=== PATIENT | male | born 1990 | race Caucasian/White ===

== ENCOUNTER 2017-10-27 00:19 | Inpatient (IN) | payer MEDICAID ==
[2017-10-26 21:50] VITALS: BP 120/49
[~2017-10-27] VITALS: Ht 185.4 cm; Wt 144.7 kg
[~2017-10-27 00:19] MED LIST: ATEN50TA PO; DIVA500T35 PO; FISH1 PO; HALOPERIDOL 5 MG TABLET PO PRN; QUET100T PO; QUET200T PO; VITAD1000 PO
[2017-10-27] MEDS ORDERED: A20IH1 IH (00:28)
[2017-10-27 00:50] LABS: BASOPHILS % (AUTO) 1.3 % (0.0-2.0); EOSINOPHILS % (AUTO) 5.2 % (1.0-6.0); HEMATOCRIT 45.4 % (41-53); HEMOGLOBIN 15.6 g/dL (13.5-17.5); LYMPHOCYTES # (AUTO) 3.5 K/uL (1.0-4.8); LYMPHOCYTES % (AUTO) 32.3 % (22.0-44.0); MEAN CORPUSCULAR HEMOGLOBIN 30.2 pg (26.0-34.0); MEAN CORPUSCULAR HGB CONC 34.5 G/dL (31.0-37.0); MEAN CORPUSCULAR VOLUME 88 fL (80-100); MONOCYTES # (AUTO) 1.1 K/uL (0.1-1.0); MONOCYTES % (AUTO) 10.2 % (2.0-9.0); NEUTROPHILS # (AUTO) 5.6 K/uL (1.8-7.7); PLATELET COUNT (AUTO) 277 K/uL (150-450); RED BLOOD CELL COUNT(AUTO) 5.18 MIL/uL (4.50-5.90); RED CELL DISTRIBUTION WIDTH 14.2 % (11.5-14.5)
[2017-10-27 00:58] LABS: ANION GAP 8 mmol/L (8-16); CALCIUM, TOTAL 9.2 mg/dL (8.8-10.5); CARBON DIOXIDE 31 mmol/L (22-29); CHLORIDE 104 mmol/L (98-107); CREATININE 0.88 mg/dL (0.60-1.30); GLOMERULAR FILTR. RATE CALC > 60 mL/min (>60); GLUCOSE,RANDOM 98 mg/dL (70-110); POTASSIUM 4.3 mmol/L (3.5-5.1); SODIUM SERUM 143 mmol/L (136-145); UREA NITROGEN, BLOOD 15 mg/dL (7-18)
[2017-10-27 01:04] LABS: ALANINE AMINOTRANSFERASE 35 U/L (12-78); ALBUMIN 3.8 g/dL (3.4-5.0); ALKALINE PHOSPHATASE 85 U/L (46-116); ASPARTATE AMINOTRANSFERASE 24 U/L (15-37); BILIRUBIN,TOTAL 0.4 mg/dL (0.1-1.0); TOTAL PROTEIN, SERUM 7.8 g/dL (6.4-8.2); VALPROIC ACID 5 mcg/mL (50-100)
[2017-10-27 01:25] LABS: AMPHET/METH SCREEN,URINE POSITIVE (NEGATIVE); BARBITURATE SCREEN, URINE NEGATIVE (NEGATIVE); BENZODIAZEPINES SCREEN,URINE NEGATIVE (NEGATIVE); CANNABINOID SCREEN,URINE NEGATIVE (NEGATIVE); COCAINE SCREEN,URINE NEGATIVE (NEGATIVE); METHADONE SCREEN, URINE NEGATIVE (NEGATIVE); OPIATE SCREEN,URINE NEGATIVE (NEGATIVE)
[2017-10-27 01:26] LABS: PHENCYCLIDINE SCREEN,URINE NEGATIVE (NEGATIVE)
[2017-10-27] MEDS ORDERED: 0.9% SODIUM CHLORIDE 5 ML NEB SOLUTION NEB ONE (03:38)
[2017-10-27] MEDS ORDERED: ALBUTEROL SULFATE 2.5 MG/0.5 ML NEB SOLUTION NEB ONE (03:45)
[2017-10-27] MEDS ORDERED: IPRATROPIUM BROMIDE 0.5 MG/2.5 ML NEB SOLUTION NEB ONE (03:45)
[2017-10-27] MEDS: ZOLPIDEM TARTRATE 10 MG TABLET PO PRN ×2 (04:52→20:10)
[2017-10-27] MEDS: LORazepam 2 MG TABLET PO PRN (04:52)
[2017-10-27 05:37] LABS: EOSINOPHILS % (AUTO) 4.8 % (1.0-6.0); HEMOGLOBIN 13.8 g/dL (13.5-17.5); LYMPHOCYTES % (AUTO) 33.5 % (22.0-44.0); MEAN CORPUSCULAR HEMOGLOBIN 29.8 pg (26.0-34.0); MEAN CORPUSCULAR HGB CONC 33.7 G/dL (31.0-37.0); MEAN CORPUSCULAR VOLUME 89 fL (80-100); MONOCYTES # (AUTO) 0.8 K/uL (0.1-1.0); MONOCYTES % (AUTO) 9.1 % (2.0-9.0); NEUTROPHILS # (AUTO) 4.7 K/uL (1.8-7.7); NEUTROPHILS % (AUTO) 51.6 % (40.0-70.0); PLATELET COUNT (AUTO) 238 K/uL (150-450); RED BLOOD CELL COUNT(AUTO) 4.63 MIL/uL (4.50-5.90); RED CELL DISTRIBUTION WIDTH 13.5 % (11.5-14.5)
[2017-10-27 06:01] LABS: ALANINE AMINOTRANSFERASE 30 U/L (12-78); ALBUMIN 3.4 g/dL (3.4-5.0); ALKALINE PHOSPHATASE 69 U/L (46-116); ANION GAP 8 mmol/L (8-16); ASPARTATE AMINOTRANSFERASE 20 U/L (15-37); BILIRUBIN,TOTAL 0.5 mg/dL (0.1-1.0); CALCIUM, TOTAL 8.5 mg/dL (8.8-10.5); CARBON DIOXIDE 26 mmol/L (22-29); CHLORIDE 105 mmol/L (98-107); FREE T4 (FREE THYROXINE) 0.95 ng/dL (0.76-1.46); GLOMERULAR FILTR. RATE CALC > 60 mL/min (>60); GLUCOSE,RANDOM 120 mg/dL (70-110); POTASSIUM 4.2 mmol/L (3.5-5.1); SODIUM SERUM 139 mmol/L (136-145); THYROID STIMULATING HORMONE 2.97 uIU/mL (0.36-3.74); TOTAL PROTEIN, SERUM 6.8 g/dL (6.4-8.2); UREA NITROGEN, BLOOD 14 mg/dL (7-18)
[2017-10-27 06:10] LABS: VALPROIC ACID < 3 mcg/mL (50-100)
[2017-10-27 09:07] VITALS: BP 122/59
[2017-10-27 13:00] VITALS: BP 116/71
[2017-10-27 16:15] VITALS: BP 128/70
[2017-10-27] MEDS: QUEtiapine FUMARATE 200 MG TABLET PO SCH (20:10)
[2017-10-28 00:41] VITALS: BP 115/62
[2017-10-28] MEDS: ALBUTEROL SULFATE HFA 90 MCG/PUFF 8 GM INHALER IH PRN ×2 (07:20→12:47)
[2017-10-28] MEDS: QUEtiapine FUMARATE 100 MG TABLET PO SCH (08:15)
[2017-10-28] MEDS: DIVALPROEX SODIUM 500 MG DR TABLET PO SCH ×2 (08:15→16:40)
[2017-10-28] MEDS: CHOLECALCIFEROL (VIT D3) 1,000 UNITS TABLET PO SCH (08:15)
[2017-10-28] MEDS: NICOTINE 14 MG/24 HOUR PATCH TD SCH (08:15)
[2017-10-28] MEDS: OMEGA-3/DHA/EPA/FISH OIL 1,000 MG CAPSULE PO SCH (08:16)
[2017-10-28] MEDS: ATENOLOL 50 MG TABLET PO SCH (08:16)
[2017-10-28 08:19] VITALS: BP 121/68
[2017-10-28] MEDS ORDERED: MAG HYDROX/AL HYDROX/SIMETH ES 30 ML SUSPENSION UDCUP PO PRN (08:30)
[2017-10-28] MEDS ORDERED: BENZOCAINE/MENTHOL LOZENGE MM PRN (08:30)
[2017-10-28] MEDS ORDERED: ALBUTEROL SULFATE HFA 90 MCG/PUFF 8 GM INHALER IH PRN (08:30)
[2017-10-28] MEDS ORDERED: MAGNESIUM HYDROXIDE SUSPENSION 30 ML UDCUP PO PRN (08:30)
[2017-10-28] MEDS ORDERED: BACITRACIN 28.4 GM OINTMENT TP PRN (08:30)
[2017-10-28] MEDS ORDERED: PETROLATUM,WHITE 71 GM JELLY TP PRN (08:30)
[2017-10-28] MEDS ORDERED: ACETAMINOPHEN 325 MG TABLET PO PRN (08:30)
[2017-10-28] MEDS ORDERED: LOPERAMIDE HCL 2 MG CAPSULE PO PRN (08:30)
[2017-10-28] MEDS ORDERED: ONDANSETRON HCL 4 MG TABLET PO PRN (08:30)
[2017-10-28] MEDS ORDERED: CloNIDine HCL 0.1 MG TABLET PO PRN (08:30)
[2017-10-28] MEDS: IBUPROFEN 600 MG TABLET PO PRN ×2 (09:06→17:46)
[2017-10-28] MEDS: OMEPRAZOLE 20 MG CAPSULE PO SCH (09:06)
[2017-10-28] MEDS: DOCUSATE SODIUM 100 MG CAPSULE PO SCH (09:07)
[2017-10-28] MEDS: LORazepam 2 MG TABLET PO PRN ×2 (13:08→19:56)
[2017-10-28 16:26] VITALS: BP 111/73
[2017-10-28] MEDS: QUEtiapine FUMARATE 200 MG TABLET PO SCH (19:56)
[2017-10-29 01:16] VITALS: BP 122/61
[2017-10-29 08:19] VITALS: BP 114/62
[2017-10-29] MEDS: OMEPRAZOLE 20 MG CAPSULE PO SCH (08:30)
[2017-10-29] MEDS: NICOTINE 14 MG/24 HOUR PATCH TD SCH (08:30)
[2017-10-29] MEDS: QUEtiapine FUMARATE 100 MG TABLET PO SCH (08:30)
[2017-10-29] MEDS: DOCUSATE SODIUM 100 MG CAPSULE PO SCH (08:30)
[2017-10-29] MEDS: DIVALPROEX SODIUM 500 MG DR TABLET PO SCH ×2 (08:30→16:00)
[2017-10-29] MEDS: OMEGA-3/DHA/EPA/FISH OIL 1,000 MG CAPSULE PO SCH (08:30)
[2017-10-29] MEDS: CHOLECALCIFEROL (VIT D3) 1,000 UNITS TABLET PO SCH (08:30)
[2017-10-29] MEDS: ATENOLOL 50 MG TABLET PO SCH (09:00)
[2017-10-29 16:11] VITALS: BP 122/65
[2017-10-29 18:37] VITALS: BP 120/71
[2017-10-29] MEDS: IBUPROFEN 600 MG TABLET PO PRN (18:37)
[2017-10-29] MEDS: QUEtiapine FUMARATE 200 MG TABLET PO SCH (20:34)
[2017-10-30 06:23] VITALS: BP 117/58
[2017-10-30] MEDS: CHOLECALCIFEROL (VIT D3) 1,000 UNITS TABLET PO SCH (08:08)
[2017-10-30] MEDS: ATENOLOL 50 MG TABLET PO SCH (08:08)
[2017-10-30] MEDS: DOCUSATE SODIUM 100 MG CAPSULE PO SCH (08:08)
[2017-10-30] MEDS: QUEtiapine FUMARATE 100 MG TABLET PO SCH (08:08)
[2017-10-30] MEDS: OMEPRAZOLE 20 MG CAPSULE PO SCH (08:09)
[2017-10-30] MEDS: NICOTINE 14 MG/24 HOUR PATCH TD SCH (08:10)
[2017-10-30] MEDS: OMEGA-3/DHA/EPA/FISH OIL 1,000 MG CAPSULE PO SCH (08:10)
[2017-10-30] MEDS: DIVALPROEX SODIUM 500 MG DR TABLET PO SCH ×2 (08:11→15:31)
[2017-10-30 08:17] VITALS: BP 108/71
[2017-10-30 15:36] VITALS: BP 111/72
[2017-10-30] MEDS: IBUPROFEN 600 MG TABLET PO PRN (15:37)
[2017-10-30 16:37] VITALS: BP 128/64
[2017-10-30 16:43] VITALS: BP 111/72
[2017-10-30] MEDS: QUEtiapine FUMARATE 200 MG TABLET PO SCH (19:38)
[2017-10-30] MEDS: ZOLPIDEM TARTRATE 10 MG TABLET PO PRN (21:00)
[2017-10-31 00:01] VITALS: BP 121/84
[2017-10-31 08:05] VITALS: BP 122/78
[2017-10-31] MEDS: NICOTINE 14 MG/24 HOUR PATCH TD SCH (09:00)
[2017-10-31] MEDS: DOCUSATE SODIUM 100 MG CAPSULE PO SCH (09:01)
[2017-10-31] MEDS: OMEGA-3/DHA/EPA/FISH OIL 1,000 MG CAPSULE PO SCH (09:01)
[2017-10-31] MEDS: CHOLECALCIFEROL (VIT D3) 1,000 UNITS TABLET PO SCH (09:01)
[2017-10-31] MEDS: OMEPRAZOLE 20 MG CAPSULE PO SCH (09:02)
[2017-10-31] MEDS: DIVALPROEX SODIUM 500 MG DR TABLET PO SCH (09:02)
[2017-10-31] MEDS: QUEtiapine FUMARATE 100 MG TABLET PO SCH (09:02)
[2017-10-31] MEDS: ATENOLOL 50 MG TABLET PO SCH (09:02)
[2017-10-31] MEDS ORDERED: DSS100 PO (09:06)
[2017-10-31] MEDS ORDERED: ALBU8HFA4 IH (09:06)
[2017-10-31] MEDS ORDERED: OMEP20 PO (09:06)
[2017-10-31] MEDS: IBUPROFEN 600 MG TABLET PO PRN (10:50)
== END 2017-10-31 16:05 | disposition home or self-care (01) | DRG 750 ==
LOC: EMS 00:19 → AHU 08:00 → B2S 15:18
PROVIDERS: ADMIT Psychiatry & Neurology Psychiatry; ATTEND Psychiatry & Neurology Psychiatry
DX: F25.9 Schizoaffective disorder, unspecified (principal); Z68.41 Body mass index [BMI] 40.0-44.9, adult; R45.851 Suicidal ideations; I10 Essential (primary) hypertension; E55.9 Vitamin D deficiency, unspecified; G47.00 Insomnia, unspecified; E66.9 Obesity, unspecified; J45.909 Unspecified asthma, uncomplicated; F41.9 Anxiety disorder, unspecified; E78.5 Hyperlipidemia, unspecified; F15.10 Other stimulant abuse, uncomplicated; F17.200 Nicotine dependence, unspecified, uncomplicated; Z79.899 Other long term (current) drug therapy; Z82.49 Family history of ischemic heart disease and other diseases of the circulatory system; Z71.6 Tobacco abuse counseling; Z71.51 Drug abuse counseling and surveillance of drug abuser
CPT/HCPCS: 82306; 84439; 84443; 87081; 94640; 99285; G0480; J3535

== ENCOUNTER 2017-11-01 11:05 | Emergency (ER) | payer MEDICAID ==
[~2017-11-01] VITALS: Ht 182.9 cm; Wt 145.4 kg
[~2017-11-01 11:05] MED LIST changes: +A20IH1 IH; +ALBU8HFA4 IH; +DSS100 PO; -HALOPERIDOL 5 MG TABLET PO PRN; +OMEP20 PO
[2017-11-01] MEDS ORDERED: IBUPROFEN 600 MG TABLET PO ONE (12:15)
[2017-11-01] MEDS ORDERED: MICONAZOLE NITRATE 2% 85 GM POWDER TP ONE (12:15)
[2017-11-01 13:25] VITALS: BP 130/80
== END 2017-11-01 13:26 | disposition home or self-care (01) ==
LOC: EMS 11:06
DX: S93.401A Sprain of unspecified ligament of right ankle, initial encounter (principal); I10 Essential (primary) hypertension; X58.XXXA Exposure to other specified factors, initial encounter; Y93.39 Activity, other involving climbing, rappelling and jumping off; Y92.89 Other specified places as the place of occurrence of the external cause; Y99.8 Other external cause status
CPT/HCPCS: 99284

== ENCOUNTER 2017-12-06 15:14 | Inpatient (IN) | payer MEDICAID ==
[~2017-12-06] VITALS: Ht 185.4 cm; Wt 145.6 kg
[~2017-12-06 15:14] MED LIST changes: -A20IH1 IH; -DSS100 PO; -FISH1 PO; -OMEP20 PO; -VITAD1000 PO
[2017-12-06 17:42] LABS: BASOPHILS % (AUTO) 0.7 % (0.0-2.0); EOSINOPHILS % (AUTO) 1.5 % (1.0-6.0); HEMATOCRIT 44.4 % (41-53); HEMOGLOBIN 15.1 g/dL (13.5-17.5); LYMPHOCYTES # (AUTO) 1.9 K/uL (1.0-4.8); LYMPHOCYTES % (AUTO) 17.4 % (22.0-44.0); MEAN CORPUSCULAR HEMOGLOBIN 29.7 pg (26.0-34.0); MEAN CORPUSCULAR HGB CONC 34.1 G/dL (31.0-37.0); MEAN CORPUSCULAR VOLUME 87 fL (80-100); MONOCYTES # (AUTO) 0.7 K/uL (0.1-1.0); NEUTROPHILS # (AUTO) 8.1 K/uL (1.8-7.7); NEUTROPHILS % (AUTO) 74.4 % (40.0-70.0); PLATELET COUNT (AUTO) 316 K/uL (150-450); RED CELL DISTRIBUTION WIDTH 13.9 % (11.5-14.5)
[2017-12-06 18:04] LABS: ANION GAP 7 mmol/L (8-16); CALCIUM, TOTAL 9.1 mg/dL (8.8-10.5); CARBON DIOXIDE 27 mmol/L (22-29); CHLORIDE 103 mmol/L (98-107); CREATININE 0.81 mg/dL (0.60-1.30); GLOMERULAR FILTR. RATE CALC > 60 mL/min (>60); GLUCOSE,RANDOM 93 mg/dL (70-110); POTASSIUM 4.3 mmol/L (3.5-5.1); SODIUM SERUM 137 mmol/L (136-145); UREA NITROGEN, BLOOD 12 mg/dL (7-18)
[2017-12-06 18:11] LABS: ALANINE AMINOTRANSFERASE 37 U/L (12-78); ALKALINE PHOSPHATASE 64 U/L (46-116); ASPARTATE AMINOTRANSFERASE 16 U/L (15-37); BILIRUBIN,TOTAL 0.9 mg/dL (0.1-1.0); TOTAL PROTEIN, SERUM 7.9 g/dL (6.4-8.2); VALPROIC ACID 4 mcg/mL (50-100)
[2017-12-06 18:42] LABS: AMPHET/METH SCREEN,URINE NEGATIVE (NEGATIVE); BARBITURATE SCREEN, URINE NEGATIVE (NEGATIVE); BENZODIAZEPINES SCREEN,URINE NEGATIVE (NEGATIVE); CANNABINOID SCREEN,URINE NEGATIVE (NEGATIVE); COCAINE SCREEN,URINE NEGATIVE (NEGATIVE); METHADONE SCREEN, URINE NEGATIVE (NEGATIVE); OPIATE SCREEN,URINE NEGATIVE (NEGATIVE); PHENCYCLIDINE SCREEN,URINE NEGATIVE (NEGATIVE)
[2017-12-06] MEDS ORDERED: LEVALBUTEROL HCL 1.25 MG/0.5 ML NEB SOLUTION NEB ONE (18:45)
[2017-12-06] MEDS ORDERED: 0.9% SODIUM CHLORIDE 5 ML NEB SOLUTION NEB ONE (18:45)
[2017-12-06] MEDS ORDERED: IBUPROFEN 800 MG TABLET PO ONE (20:45)
[2017-12-06] MEDS ORDERED: OLANZapine 5 MG TABLET PO ONE (21:15)
[2017-12-06] MEDS ORDERED: DiphenhydrAMINE HCL 25 MG CAPSULE PO ONE (21:15)
[2017-12-06] MEDS ORDERED: LORazepam 2 MG TABLET PO ONE (21:15)
[2017-12-06] MEDS ORDERED: ZOLPIDEM TARTRATE 10 MG TABLET PO PRN (21:45)
[2017-12-06] MEDS ORDERED: HALOPERIDOL 5 MG TABLET PO PRN (21:45)
[2017-12-06] MEDS ORDERED: LORazepam 2 MG TABLET PO PRN (21:45)
[2017-12-07 00:25] VITALS: BP 107/66
[2017-12-07] MEDS ORDERED: PNEUMOCOCCAL VACCINE POLYVALENT 0.5 ML VIAL [PPSV23] IM ONE (03:00)
[2017-12-07 08:09] VITALS: BP 140/60
[2017-12-07 08:41] LABS: CHOL/HDL RATIO 4.5 (4.2-7.3)
[2017-12-07] MEDS ORDERED: PETROLATUM,WHITE 71 GM JELLY TP PRN (11:15)
[2017-12-07] MEDS ORDERED: ONDANSETRON HCL 4 MG TABLET PO PRN (11:15)
[2017-12-07] MEDS ORDERED: BACITRACIN 28.4 GM OINTMENT TP PRN (11:15)
[2017-12-07] MEDS ORDERED: ACETAMINOPHEN 325 MG TABLET PO PRN (11:15)
[2017-12-07] MEDS ORDERED: CloNIDine HCL 0.1 MG TABLET PO PRN (11:15)
[2017-12-07] MEDS ORDERED: LOPERAMIDE HCL 2 MG CAPSULE PO PRN (11:15)
[2017-12-07] MEDS ORDERED: BENZOCAINE/MENTHOL LOZENGE MM PRN (11:15)
[2017-12-07] MEDS ORDERED: MAGNESIUM HYDROXIDE SUSPENSION 30 ML UDCUP PO PRN (11:15)
[2017-12-07] MEDS: IBUPROFEN 600 MG TABLET PO PRN (12:36)
[2017-12-07 16:16] VITALS: BP 111/69
[2017-12-07] MEDS: HALOPERIDOL 5 MG TABLET PO PRN (20:13)
[2017-12-07] MEDS: QUEtiapine FUMARATE 200 MG TABLET PO SCH (20:13)
[2017-12-07] MEDS: LORazepam 2 MG TABLET PO PRN (20:13)
[2017-12-07] MEDS: ZOLPIDEM TARTRATE 10 MG TABLET PO PRN (22:20)
[2017-12-08 06:28] VITALS: BP 110/63
[2017-12-08 08:20] VITALS: BP 101/67
[2017-12-08] MEDS: ATENOLOL 25 MG TABLET PO SCH (09:03)
[2017-12-08] MEDS: NICOTINE 21 MG/24 HOUR PATCH TD SCH (09:04)
[2017-12-08] MEDS: DIVALPROEX SODIUM 500 MG DR TABLET PO SCH ×2 (09:04→16:17)
[2017-12-08] MEDS: QUEtiapine FUMARATE 100 MG TABLET PO SCH (09:04)
[2017-12-08] MEDS: LORazepam 2 MG TABLET PO PRN ×2 (12:10→16:18)
[2017-12-08] MEDS: HALOPERIDOL 5 MG TABLET PO PRN ×2 (12:10→16:18)
[2017-12-08 16:16] VITALS: BP 127/67
[2017-12-08] MEDS: IBUPROFEN 600 MG TABLET PO PRN (16:18)
[2017-12-08] MEDS: ZOLPIDEM TARTRATE 10 MG TABLET PO PRN (20:24)
[2017-12-08] MEDS: QUEtiapine FUMARATE 200 MG TABLET PO SCH (20:24)
[2017-12-09 02:50] VITALS: BP 124/83
[2017-12-09] MEDS: IBUPROFEN 600 MG TABLET PO PRN ×2 (04:41→12:57)
[2017-12-09 08:10] VITALS: BP 128/67
[2017-12-09] MEDS: HALOPERIDOL 5 MG TABLET PO PRN ×2 (09:00→17:07)
[2017-12-09] MEDS: ATENOLOL 25 MG TABLET PO SCH (09:00)
[2017-12-09] MEDS: QUEtiapine FUMARATE 100 MG TABLET PO SCH (09:00)
[2017-12-09] MEDS: LORazepam 2 MG TABLET PO PRN ×3 (09:00→17:07)
[2017-12-09] MEDS: DIVALPROEX SODIUM 500 MG DR TABLET PO SCH ×2 (09:00→17:07)
[2017-12-09] MEDS: NICOTINE 21 MG/24 HOUR PATCH TD SCH (09:00)
[2017-12-09] MEDS: MAG HYDROX/AL HYDROX/SIMETH ES 30 ML SUSPENSION UDCUP PO PRN (11:17)
[2017-12-09 16:27] VITALS: BP 122/80
[2017-12-09] MEDS: ZOLPIDEM TARTRATE 10 MG TABLET PO PRN (20:16)
[2017-12-09] MEDS: HALOPERIDOL 10 MG TABLET PO SCH (20:16)
[2017-12-10 06:21] VITALS: BP 126/78
[2017-12-10 08:15] VITALS: BP 145/79
[2017-12-10] MEDS: ATENOLOL 25 MG TABLET PO SCH (08:23)
[2017-12-10] MEDS: OMEGA-3/DHA/EPA/FISH OIL 1,000 MG CAPSULE PO SCH (08:23)
[2017-12-10] MEDS: DIVALPROEX SODIUM 500 MG DR TABLET PO SCH ×2 (08:23→17:24)
[2017-12-10] MEDS: NICOTINE 21 MG/24 HOUR PATCH TD SCH (08:26)
[2017-12-10] MEDS: LORazepam 2 MG TABLET PO PRN ×2 (10:15→17:23)
[2017-12-10 16:23] VITALS: BP 118/73
[2017-12-10] MEDS ORDERED: HALOPERIDOL DECANOATE 100 MG/ML VIAL IM ONE ×2 (19:45→20:15)
[2017-12-10] MEDS: HALOPERIDOL 10 MG TABLET PO SCH (20:22)
[2017-12-11 05:02] VITALS: BP 124/89
[2017-12-11] MEDS: OMEGA-3/DHA/EPA/FISH OIL 1,000 MG CAPSULE PO SCH (08:17)
[2017-12-11] MEDS: LORazepam 2 MG TABLET PO PRN ×2 (08:17→12:46)
[2017-12-11] MEDS: DIVALPROEX SODIUM 500 MG DR TABLET PO SCH ×2 (08:17→16:10)
[2017-12-11] MEDS: NICOTINE 21 MG/24 HOUR PATCH TD SCH (08:17)
[2017-12-11] MEDS: ATENOLOL 25 MG TABLET PO SCH (08:17)
[2017-12-11 08:47] VITALS: BP 118/74
[2017-12-11] MEDS: IBUPROFEN 600 MG TABLET PO PRN ×2 (09:28→16:11)
[2017-12-11] MEDS: ALBUTEROL SULFATE HFA 90 MCG/PUFF 8 GM INHALER IH PRN ×2 (12:53→22:23)
[2017-12-11 16:11] VITALS: BP 123/89
[2017-12-11] MEDS: HALOPERIDOL 10 MG TABLET PO SCH (20:18)
[2017-12-11] MEDS: ZOLPIDEM TARTRATE 10 MG TABLET PO PRN (21:00)
[2017-12-12 06:25] VITALS: BP 128/89
[2017-12-12] MEDS: DIVALPROEX SODIUM 500 MG DR TABLET PO SCH ×2 (08:16→16:13)
[2017-12-12] MEDS: ATENOLOL 25 MG TABLET PO SCH (08:16)
[2017-12-12] MEDS: OMEGA-3/DHA/EPA/FISH OIL 1,000 MG CAPSULE PO SCH (08:16)
[2017-12-12] MEDS: NICOTINE 21 MG/24 HOUR PATCH TD SCH (08:21)
[2017-12-12 08:38] VITALS: BP 126/89
[2017-12-12] MEDS: ALBUTEROL SULFATE HFA 90 MCG/PUFF 8 GM INHALER IH PRN ×2 (09:22→12:16)
[2017-12-12 11:10] VITALS: BP 105/64
[2017-12-12 16:07] VITALS: BP 109/77
[2017-12-12] MEDS: LORazepam 2 MG TABLET PO PRN (16:13)
[2017-12-12] MEDS: HALOPERIDOL 5 MG TABLET PO PRN (16:17)
[2017-12-12] MEDS: HALOPERIDOL 10 MG TABLET PO SCH (20:10)
[2017-12-12] MEDS: ZOLPIDEM TARTRATE 10 MG TABLET PO PRN (21:04)
[2017-12-13 04:24] VITALS: BP 121/68
[2017-12-13 08:31] VITALS: BP 104/78
[2017-12-13] MEDS: DIVALPROEX SODIUM 500 MG DR TABLET PO SCH ×2 (08:37→16:08)
[2017-12-13] MEDS: ATENOLOL 25 MG TABLET PO SCH (08:37)
[2017-12-13] MEDS: OMEGA-3/DHA/EPA/FISH OIL 1,000 MG CAPSULE PO SCH (08:37)
[2017-12-13] MEDS: NICOTINE 21 MG/24 HOUR PATCH TD SCH (08:37)
[2017-12-13] MEDS ORDERED: HALOPERIDOL DECANOATE 50 MG/ML VIAL IM ONE ×2 (09:00→17:00)
[2017-12-13] MEDS: ALBUTEROL SULFATE HFA 90 MCG/PUFF 8 GM INHALER IH PRN ×2 (12:30→15:54)
[2017-12-13] MEDS: LORazepam 2 MG TABLET PO PRN ×2 (16:08→21:48)
[2017-12-13 16:32] VITALS: BP 118/67
[2017-12-13] MEDS: MAG HYDROX/AL HYDROX/SIMETH ES 30 ML SUSPENSION UDCUP PO PRN (20:11)
[2017-12-13] MEDS: HALOPERIDOL 10 MG TABLET PO SCH (20:11)
[2017-12-13] MEDS: ZOLPIDEM TARTRATE 10 MG TABLET PO PRN (20:35)
[2017-12-14 06:40] VITALS: BP 116/74
[2017-12-14] MEDS ORDERED: HALO5TAB2 PO (08:11)
[2017-12-14] MEDS ORDERED: OMEG-135 PO (08:11)
[2017-12-14] MEDS ORDERED: ATEN25TA PO (08:12)
[2017-12-14] MEDS: DIVALPROEX SODIUM 500 MG DR TABLET PO SCH (08:51)
[2017-12-14] MEDS: ATENOLOL 25 MG TABLET PO SCH (08:52)
[2017-12-14] MEDS: NICOTINE 21 MG/24 HOUR PATCH TD SCH (08:52)
[2017-12-14] MEDS: OMEGA-3/DHA/EPA/FISH OIL 1,000 MG CAPSULE PO SCH (08:52)
[2017-12-14 10:27] VITALS: BP 110/60
[2018-01-10] MEDS ORDERED: HALOPERIDOL DECANOATE 100 MG/ML VIAL IM SCH (09:00)
== END 2017-12-14 13:10 | disposition home or self-care (01) | DRG 750 ==
LOC: EEVIPCON 15:15 → EMS 15:15 → B3A 22:10 → B2S 12-10 12:28
PROVIDERS: ADMIT Psychiatry & Neurology Psychiatry; ATTEND Psychiatry & Neurology Psychiatry
DX: F25.9 Schizoaffective disorder, unspecified (principal); Z68.41 Body mass index [BMI] 40.0-44.9, adult; I10 Essential (primary) hypertension; E55.9 Vitamin D deficiency, unspecified; F31.9 Bipolar disorder, unspecified; E66.9 Obesity, unspecified; E78.1 Pure hyperglyceridemia; F15.10 Other stimulant abuse, uncomplicated; F17.200 Nicotine dependence, unspecified, uncomplicated; J45.909 Unspecified asthma, uncomplicated; Z28.21 Immunization not carried out because of patient refusal; Z79.899 Other long term (current) drug therapy
CPT/HCPCS: 90471; 99285; G0480; J1631; J3535

== ENCOUNTER 2018-09-11 11:20 | Inpatient (IN) | payer MEDICAID ==
[~2018-09-11] VITALS: Ht 188 cm; Wt 150.2 kg
[~2018-09-11 11:20] MED LIST changes: -ALBU8HFA4 IH; +ATEN25TA PO; -ATEN50TA PO; +DIVA-78 PO; -DIVA500T35 PO; +HALO5TAB2 PO; +OMEG-135 PO; -QUET100T PO; -QUET200T PO
[2018-09-11 11:54] VITALS: BP 155/97
[2018-09-11] MEDS ORDERED: TRAZ-219 PO (12:33)
[2018-09-11] MEDS ORDERED: CLON1 PO (12:33)
[2018-09-11] MEDS ORDERED: CARI1.5C PO (12:33)
[2018-09-11] MEDS ORDERED: HALO5TAB2 PO (12:35)
[2018-09-11] MEDS ORDERED: DIVA-78 PO (12:35)
[2018-09-11 13:10] VITALS: BP 148/85
[2018-09-11] MEDS ORDERED: -PHARMACY VACCINE NOTE- MISC ONE (14:15)
[2018-09-11 16:00] VITALS: BP 140/76
[2018-09-11] MEDS: LORazepam 2 MG TABLET PO PRN (16:58)
[2018-09-11] MEDS: DIVALPROEX SODIUM 500 MG DR TABLET PO SCH (16:58)
[2018-09-11] MEDS: ZOLPIDEM TARTRATE 10 MG TABLET PO PRN (20:20)
[2018-09-11] MEDS: HALOPERIDOL 10 MG TABLET PO SCH (20:20)
[2018-09-11] MEDS: NICOTINE 14 MG/24 HOUR PATCH TD PRN (21:18)
[2018-09-11] MEDS ORDERED: BENZOCAINE/MENTHOL LOZENGE MM PRN (22:00)
[2018-09-11] MEDS ORDERED: LOPERAMIDE HCL 2 MG CAPSULE PO PRN (22:00)
[2018-09-11] MEDS ORDERED: MAG HYDROX/AL HYDROX/SIMETH ES 30 ML SUSPENSION UDCUP PO PRN (22:00)
[2018-09-11] MEDS ORDERED: ONDANSETRON HCL 4 MG TABLET PO PRN (22:00)
[2018-09-11] MEDS ORDERED: MAGNESIUM HYDROXIDE SUSPENSION 30 ML UDCUP PO PRN (22:00)
[2018-09-11] MEDS ORDERED: CloNIDine HCL 0.1 MG TABLET PO PRN (22:00)
[2018-09-11] MEDS ORDERED: ACETAMINOPHEN 325 MG TABLET PO PRN (22:00)
[2018-09-11] MEDS ORDERED: IBUPROFEN 600 MG TABLET PO PRN (22:00)
[2018-09-11] MEDS ORDERED: BACITRACIN 28.4 GM OINTMENT TP PRN (22:00)
[2018-09-11] MEDS ORDERED: PETROLATUM,WHITE 71 GM JELLY TP PRN (22:00)
[2018-09-12 05:10] VITALS: BP 122/80
[2018-09-12 08:20] VITALS: BP 123/60
[2018-09-12 08:25] LABS: BASOPHILS % (AUTO) 0.6 % (0.0-2.0); EOSINOPHILS % (AUTO) 5.1 % (1.0-6.0); HEMATOCRIT 41.8 % (41-53); HEMOGLOBIN 14.6 g/dL (13.5-17.5); LYMPHOCYTES # (AUTO) 1.6 K/uL (1.0-4.8); LYMPHOCYTES % (AUTO) 22.1 % (22.0-44.0); MEAN CORPUSCULAR HEMOGLOBIN 30.9 pg (26.0-34.0); MEAN CORPUSCULAR HGB CONC 34.9 G/dL (31.0-37.0); MEAN CORPUSCULAR VOLUME 89 fL (80-100); MONOCYTES # (AUTO) 0.9 K/uL (0.1-1.0); MONOCYTES % (AUTO) 12.4 % (2.0-9.0); NEUTROPHILS # (AUTO) 4.3 K/uL (1.8-7.7); NEUTROPHILS % (AUTO) 59.8 % (40.0-70.0); PLATELET COUNT (AUTO) 209 K/uL (150-450); RED BLOOD CELL COUNT(AUTO) 4.72 MIL/uL (4.50-5.90); RED CELL DISTRIBUTION WIDTH 14.3 % (11.5-14.5)
[2018-09-12 08:28] LABS: HEMOGLOBIN A1C 5.1 % (4.5-6.2)
[2018-09-12] MEDS: DIVALPROEX SODIUM 500 MG DR TABLET PO SCH ×2 (09:00→16:25)
[2018-09-12] MEDS ORDERED: NICOTINE 14 MG/24 HOUR PATCH TD SCH (09:00)
[2018-09-12] MEDS ORDERED: DOCUSATE SODIUM 100 MG CAPSULE PO SCH (09:00)
[2018-09-12] MEDS ORDERED: OMEPRAZOLE 20 MG CAPSULE PO SCH (09:00)
[2018-09-12 09:07] LABS: ALANINE AMINOTRANSFERASE 103 U/L (12-78); ALBUMIN 3.5 g/dL (3.4-5.0); ALKALINE PHOSPHATASE 69 U/L (46-116); ANION GAP 4 mmol/L (8-16); ASPARTATE AMINOTRANSFERASE 32 U/L (15-37); BILIRUBIN,TOTAL 1.8 mg/dL (0.1-1.0); CALCIUM, TOTAL 8.6 mg/dL (8.8-10.5); CARBON DIOXIDE 32 mmol/L (22-29); CHLORIDE 102 mmol/L (98-107); CHOLESTEROL 125 mg/dL (131-200); CREATININE 0.79 mg/dL (0.60-1.30); FREE T4 (FREE THYROXINE) 1.14 ng/dL (0.76-1.46); GLOMERULAR FILTR. RATE CALC > 60 mL/min (>60); GLUCOSE,RANDOM 87 mg/dL (70-110); HDL CHOLESTEROL 42 mg/dL (40-60); LDL CHOL (CALC.) 69 mg/dL (0-130); SODIUM SERUM 138 mmol/L (136-145); THYROID STIMULATING HORMONE 1.29 uIU/mL (0.36-3.74); TOTAL PROTEIN, SERUM 6.6 g/dL (6.4-8.2); TRIGLYCERIDES 69 mg/dL (15-150); UREA NITROGEN, BLOOD 9 mg/dL (7-18)
[2018-09-12] MEDS: ALBUTEROL SULFATE HFA 90 MCG/PUFF 8 GM INHALER IH PRN ×2 (10:09→17:14)
[2018-09-12] MEDS ORDERED: LORATADINE 10 MG TABLET PO PRN (12:45)
[2018-09-12 16:16] VITALS: BP 113/64
[2018-09-12] MEDS: LORazepam 2 MG TABLET PO PRN ×2 (16:25→20:46)
[2018-09-12] MEDS: HALOPERIDOL 5 MG TABLET PO PRN (16:25)
[2018-09-12] MEDS ORDERED: DOCUSATE SODIUM 100 MG CAPSULE PO PRN (19:15)
[2018-09-12] MEDS ORDERED: OMEPRAZOLE 20 MG CAPSULE PO PRN (19:15)
[2018-09-12] MEDS: HALOPERIDOL 10 MG TABLET PO SCH (20:37)
[2018-09-12] MEDS: ZOLPIDEM TARTRATE 10 MG TABLET PO PRN (20:46)
[2018-09-13 07:09] VITALS: BP 118/72
[2018-09-13] MEDS: ALBUTEROL SULFATE HFA 90 MCG/PUFF 8 GM INHALER IH PRN ×2 (07:11→13:36)
[2018-09-13] MEDS: DIVALPROEX SODIUM 500 MG DR TABLET PO SCH ×2 (08:08→16:14)
[2018-09-13 08:57] VITALS: BP 112/64
[2018-09-13] MEDS ORDERED: GuaiFENesin SR 600 MG ER TABLET PO PRN (11:30)
[2018-09-13 16:00] VITALS: BP 120/71
[2018-09-13] MEDS: HALOPERIDOL 10 MG TABLET PO SCH (20:07)
[2018-09-13] MEDS: LORazepam 2 MG TABLET PO PRN (20:07)
[2018-09-13] MEDS: ZOLPIDEM TARTRATE 10 MG TABLET PO PRN (21:35)
[2018-09-14] MEDS: ALBUTEROL SULFATE HFA 90 MCG/PUFF 8 GM INHALER IH PRN ×3 (04:50→21:21)
[2018-09-14 05:07] VITALS: BP 125/72
[2018-09-14 08:55] VITALS: BP 108/61
[2018-09-14] MEDS: HALOPERIDOL 5 MG TABLET PO PRN (09:12)
[2018-09-14] MEDS: LORazepam 2 MG TABLET PO PRN ×2 (09:12→16:02)
[2018-09-14] MEDS: DIVALPROEX SODIUM 500 MG DR TABLET PO SCH ×2 (09:12→16:02)
[2018-09-14 16:33] VITALS: BP 121/67
[2018-09-14] MEDS: HALOPERIDOL 10 MG TABLET PO SCH (20:18)
[2018-09-14] MEDS: ZOLPIDEM TARTRATE 10 MG TABLET PO PRN (21:28)
[2018-09-15 00:40] VITALS: BP 119/83
[2018-09-15] MEDS: DIVALPROEX SODIUM 500 MG DR TABLET PO SCH (08:40)
[2018-09-15] MEDS: NICOTINE 14 MG/24 HOUR PATCH TD PRN (09:11)
[2018-09-15 09:15] VITALS: BP 106/71
[2018-09-15] MEDS: ALBUTEROL SULFATE HFA 90 MCG/PUFF 8 GM INHALER IH PRN (10:53)
== END 2018-09-15 12:45 | disposition home or self-care (01) | DRG 750 ==
LOC: B3A 12:11 → B2S 09-14 21:05
PROVIDERS: ADMIT Psychiatry & Neurology Psychiatry; ATTEND Psychiatry & Neurology Psychiatry
DX: F20.0 Paranoid schizophrenia (principal); R45.851 Suicidal ideations; Z28.21 Immunization not carried out because of patient refusal; G47.00 Insomnia, unspecified; K59.00 Constipation, unspecified; F41.9 Anxiety disorder, unspecified
CPT/HCPCS: 83036; 84439; 84443; J3535

== ENCOUNTER 2019-08-31 15:35 | Inpatient (IN) | payer MEDICAID ==
[~2019-08-31] VITALS: Ht 188 cm; Wt 126.6 kg
[~2019-08-31 15:35] MED LIST changes: -ATEN25TA PO; +DIVA250T4 PO; +HALO10 PO; +HALO100V4 IM; -HALO5TAB2 PO; +NALT50TA PO; +NALT50TA6 PO; -OMEG-135 PO; +TRIH2TAB3 PO
[2019-08-31 18:28] LABS: BASOPHILS % (AUTO) 0.4 % (0.0-2.0); EOSINOPHILS % (AUTO) 0.7 % (1.0-6.0); HEMATOCRIT 46.3 % (41-53); HEMOGLOBIN 15.8 g/dL (13.5-17.5); LYMPHOCYTES # (AUTO) 2.5 K/uL (1.0-4.8); LYMPHOCYTES % (AUTO) 22.9 % (22.0-44.0); MEAN CORPUSCULAR HEMOGLOBIN 30.7 pg (26.0-34.0); MEAN CORPUSCULAR HGB CONC 34.1 G/dL (31.0-37.0); MEAN CORPUSCULAR VOLUME 90 fL (80-100); MONOCYTES # (AUTO) 0.8 K/uL (0.1-1.0); MONOCYTES % (AUTO) 6.9 % (2.0-9.0); NEUTROPHILS # (AUTO) 7.6 K/uL (1.8-7.7); NEUTROPHILS % (AUTO) 69.1 % (40.0-70.0); PLATELET COUNT (AUTO) 286 K/uL (150-450); RED BLOOD CELL COUNT(AUTO) 5.14 MIL/uL (4.50-5.90); RED CELL DISTRIBUTION WIDTH 13.5 % (11.5-14.5)
[2019-08-31 18:44] LABS: AMPHET/METH SCREEN,URINE POSITIVE (NEGATIVE); BARBITURATE SCREEN, URINE NEGATIVE (NEGATIVE); BENZODIAZEPINES SCREEN,URINE NEGATIVE (NEGATIVE); CANNABINOID SCREEN,URINE NEGATIVE (NEGATIVE); COCAINE SCREEN,URINE NEGATIVE (NEGATIVE); METHADONE SCREEN, URINE NEGATIVE (NEGATIVE); OPIATE SCREEN,URINE NEGATIVE (NEGATIVE); PHENCYCLIDINE SCREEN,URINE NEGATIVE (NEGATIVE)
[2019-08-31 18:51] LABS: ANION GAP 15 mmol/L (8-16); CARBON DIOXIDE 24 mmol/L (22-29); CHLORIDE 104 mmol/L (98-107); GLOMERULAR FILTR. RATE CALC > 60 mL/min (>60); GLUCOSE,RANDOM 78 mg/dL (70-110); SODIUM SERUM 143 mmol/L (136-145); UREA NITROGEN, BLOOD 10 mg/dL (7-18)
[2019-08-31 18:57] LABS: ALANINE AMINOTRANSFERASE 21 U/L (12-78); ALKALINE PHOSPHATASE 77 U/L (46-116); ASPARTATE AMINOTRANSFERASE 12 U/L (15-37); BILIRUBIN,TOTAL 0.7 mg/dL (0.1-1.0); TOTAL PROTEIN, SERUM 7.6 g/dL (6.4-8.2)
[2019-08-31] MEDS ORDERED: HALOPERIDOL 5 MG TABLET PO PRN (21:00)
[2019-08-31] MEDS ORDERED: LORazepam 2 MG TABLET PO PRN (21:00)
[2019-08-31] MEDS ORDERED: ZOLPIDEM TARTRATE 10 MG TABLET PO PRN (21:00)
[2019-09-01 01:35] VITALS: BP 127/73
[2019-09-01 08:00] VITALS: BP 112/75
[2019-09-01] MEDS ORDERED: ALBUTEROL SULFATE HFA 90 MCG/PUFF 8 GM INHALER IH PRN (10:15)
[2019-09-01] MEDS ORDERED: LOPERAMIDE HCL 2 MG CAPSULE PO PRN (10:15)
[2019-09-01] MEDS ORDERED: MAGNESIUM HYDROXIDE SUSPENSION 30 ML UDCUP PO PRN (10:15)
[2019-09-01] MEDS ORDERED: DOCUSATE SODIUM 100 MG CAPSULE PO PRN (10:15)
[2019-09-01] MEDS ORDERED: CloNIDine HCL 0.1 MG TABLET PO PRN (10:15)
[2019-09-01] MEDS ORDERED: MAG HYDROX/AL HYDROX/SIMETH ES 30 ML SUSPENSION UDCUP PO PRN (10:15)
[2019-09-01] MEDS ORDERED: IBUPROFEN 400 MG TABLET PO PRN (10:15)
[2019-09-01] MEDS ORDERED: GuaiFENesin/D-METHORPHAN [SUGAR-FREE] 200-20MG/10 ML SYRUP UDCUP PO PRN (10:15)
[2019-09-01] MEDS ORDERED: NICOTINE 14 MG/24 HOUR PATCH TD PRN (10:15)
[2019-09-01] MEDS ORDERED: PETROLATUM,WHITE 28 GM JELLY TP PRN (10:15)
[2019-09-01] MEDS ORDERED: ONDANSETRON HCL 4 MG TABLET PO PRN (10:15)
[2019-09-01] MEDS ORDERED: ACETAMINOPHEN 325 MG TABLET PO PRN (10:15)
[2019-09-01 16:13] VITALS: BP 107/68
[2019-09-02 06:38] VITALS: BP 106/65
[2019-09-02 08:00] VITALS: BP 104/62
[2019-09-02 16:12] VITALS: BP 130/67
[2019-09-03 06:40] VITALS: BP 105/71
[2019-09-03 08:50] VITALS: BP 103/51
[2019-09-03 16:23] VITALS: BP 109/60
== END 2019-09-03 15:20 | disposition home or self-care (01) | DRG 750 ==
LOC: EMS 15:36 → B3A 23:25
PROVIDERS: ADMIT Psychiatry & Neurology Psychiatry; ATTEND Psychiatry & Neurology Psychiatry
DX: F25.1 Schizoaffective disorder, depressive type (principal); R45.851 Suicidal ideations; F10.10 Alcohol abuse, uncomplicated; F17.210 Nicotine dependence, cigarettes, uncomplicated; F15.90 Other stimulant use, unspecified, uncomplicated; I10 Essential (primary) hypertension; J45.909 Unspecified asthma, uncomplicated; F12.90 Cannabis use, unspecified, uncomplicated; F41.9 Anxiety disorder, unspecified
CPT/HCPCS: G0480

== ENCOUNTER 2019-10-10 09:21 | Emergency (ER) | payer MEDICAID ==
[~2019-10-10] VITALS: Ht 188 cm; Wt 127.3 kg
[2019-10-10 09:46] LABS: BASOPHILS % (AUTO) 0.7 % (0.0-2.0); EOSINOPHILS % (AUTO) 0.8 % (1.0-6.0); HEMATOCRIT 47.3 % (41-53); HEMOGLOBIN 15.9 g/dL (13.5-17.5); LYMPHOCYTES # (AUTO) 1.7 K/uL (1.0-4.8); LYMPHOCYTES % (AUTO) 18.2 % (22.0-44.0); MEAN CORPUSCULAR HEMOGLOBIN 30.1 pg (26.0-34.0); MEAN CORPUSCULAR HGB CONC 33.7 G/dL (31.0-37.0); MEAN CORPUSCULAR VOLUME 89 fL (80-100); MONOCYTES # (AUTO) 0.5 K/uL (0.1-1.0); MONOCYTES % (AUTO) 5.3 % (2.0-9.0); PLATELET COUNT (AUTO) 322 K/uL (150-450); RED CELL DISTRIBUTION WIDTH 13.4 % (11.5-14.5)
[2019-10-10 09:56] LABS: ANION GAP 11 mmol/L (8-16); CALCIUM, TOTAL 9.3 mg/dL (8.8-10.5); CARBON DIOXIDE 26 mmol/L (22-29); CHLORIDE 101 mmol/L (98-107); CREATININE 0.81 mg/dL (0.60-1.30); GLOMERULAR FILTR. RATE CALC > 60 mL/min (>60); GLUCOSE,RANDOM 106 mg/dL (70-110); POTASSIUM 3.6 mmol/L (3.5-5.1); SODIUM SERUM 138 mmol/L (136-145); UREA NITROGEN, BLOOD 10 mg/dL (7-18)
[2019-10-10 09:59] LABS: APPEARANCE,URINE CLEAR (CLEAR); BILIRUBIN,URINE NEGATIVE (NEGATIVE); GLUCOSE, URINE (UA) NEGATIVE (NEGATIVE); KETONES,URINE NEGATIVE (NEGATIVE); LEUKOCYTE ESTERASE ,URINE NEGATIVE (NEGATIVE); NITRATE,URINE NEGATIVE (NEGATIVE); OCCULT BLOOD,URINE NEGATIVE (NEGATIVE); PH,URINE 6.5 (5.0-8.0); PROTEIN,URINE NEGATIVE (NEGATIVE); UROBILINOGEN,URINE 0.2 mg/dL (<=1.0)
[2019-10-10 10:01] LABS: ALANINE AMINOTRANSFERASE 25 U/L (12-78); ALBUMIN 4.3 g/dL (3.4-5.0); ALKALINE PHOSPHATASE 77 U/L (46-116); ASPARTATE AMINOTRANSFERASE 12 U/L (15-37); BILIRUBIN,TOTAL 0.7 mg/dL (0.1-1.0); TOTAL PROTEIN, SERUM 8.2 g/dL (6.4-8.2)
[2019-10-10 10:04] LABS: AMPHET/METH SCREEN,URINE POSITIVE (NEGATIVE); BARBITURATE SCREEN, URINE NEGATIVE (NEGATIVE); BENZODIAZEPINES SCREEN,URINE NEGATIVE (NEGATIVE); CANNABINOID SCREEN,URINE NEGATIVE (NEGATIVE); COCAINE SCREEN,URINE NEGATIVE (NEGATIVE); METHADONE SCREEN, URINE NEGATIVE (NEGATIVE); OPIATE SCREEN,URINE NEGATIVE (NEGATIVE); PHENCYCLIDINE SCREEN,URINE NEGATIVE (NEGATIVE)
[2019-10-10 11:54] VITALS: BP 130/89
== END 2019-10-10 12:11 | disposition home or self-care (01) ==
LOC: EMS 09:23
DX: F15.10 Other stimulant abuse, uncomplicated (principal); F20.9 Schizophrenia, unspecified; F31.9 Bipolar disorder, unspecified; I10 Essential (primary) hypertension; F17.210 Nicotine dependence, cigarettes, uncomplicated; F12.90 Cannabis use, unspecified, uncomplicated
CPT/HCPCS: 36415; 80053; 80307; 81003; 85025; 99285; 99406; G0480

== ENCOUNTER 2019-12-15 12:10 | Inpatient (IN) | payer MEDICAID ==
[~2019-12-15] VITALS: Ht 188 cm; Wt 126.2 kg
[2019-12-15 14:58] LABS: BASOPHILS % (AUTO) 0.5 % (0.0-2.0); EOSINOPHILS % (AUTO) 0.4 % (1.0-6.0); HEMATOCRIT 42.6 % (41-53); HEMOGLOBIN 14.5 g/dL (13.5-17.5); LYMPHOCYTES # (AUTO) 2.1 K/uL (1.0-4.8); LYMPHOCYTES % (AUTO) 19.7 % (22.0-44.0); MEAN CORPUSCULAR HEMOGLOBIN 30.5 pg (26.0-34.0); MEAN CORPUSCULAR VOLUME 90 fL (80-100); MONOCYTES # (AUTO) 0.8 K/uL (0.1-1.0); MONOCYTES % (AUTO) 7.3 % (2.0-9.0); NEUTROPHILS # (AUTO) 7.6 K/uL (1.8-7.7); NEUTROPHILS % (AUTO) 72.1 % (40.0-70.0); PLATELET COUNT (AUTO) 298 K/uL (150-450); RED BLOOD CELL COUNT(AUTO) 4.76 MIL/uL (4.50-5.90); RED CELL DISTRIBUTION WIDTH 13.8 % (11.5-14.5)
[2019-12-15 15:23] LABS: ANION GAP 11 mmol/L (8-16); CALCIUM, TOTAL 9.1 mg/dL (8.8-10.5); CARBON DIOXIDE 27 mmol/L (22-29); CHLORIDE 105 mmol/L (98-107); CREATININE 0.92 mg/dL (0.60-1.30); GLOMERULAR FILTR. RATE CALC > 60 mL/min (>60); GLUCOSE,RANDOM 86 mg/dL (70-110); POTASSIUM 3.4 mmol/L (3.5-5.1); SODIUM SERUM 143 mmol/L (136-145); UREA NITROGEN, BLOOD 14 mg/dL (7-18)
[2019-12-15 15:30] LABS: ALANINE AMINOTRANSFERASE 32 U/L (12-78); ALBUMIN 4.5 g/dL (3.4-5.0); ALKALINE PHOSPHATASE 60 U/L (46-116); ASPARTATE AMINOTRANSFERASE 21 U/L (15-37); BILIRUBIN,TOTAL 0.9 mg/dL (0.1-1.0)
[2019-12-15] MEDS ORDERED: HALOPERIDOL 5 MG TABLET PO PRN (19:15)
[2019-12-15 21:39] LABS: AMPHET/METH SCREEN,URINE POSITIVE (NEGATIVE); BARBITURATE SCREEN, URINE NEGATIVE (NEGATIVE); BENZODIAZEPINES SCREEN,URINE NEGATIVE (NEGATIVE); CANNABINOID SCREEN,URINE NEGATIVE (NEGATIVE); COCAINE SCREEN,URINE NEGATIVE (NEGATIVE); METHADONE SCREEN, URINE NEGATIVE (NEGATIVE); OPIATE SCREEN,URINE NEGATIVE (NEGATIVE)
[2019-12-15 21:45] LABS: PHENCYCLIDINE SCREEN,URINE NEGATIVE (NEGATIVE)
[2019-12-16 01:20] VITALS: BP 126/66
[2019-12-16] MEDS ORDERED: -PHARMACY VACCINE NOTE- MISC ONE (01:30)
[2019-12-16] MEDS ORDERED: MAG HYDROX/AL HYDROX/SIMETH ES 30 ML SUSPENSION UDCUP PO PRN (07:45)
[2019-12-16] MEDS ORDERED: PETROLATUM,WHITE 28 GM JELLY TP PRN (07:45)
[2019-12-16] MEDS ORDERED: ONDANSETRON HCL 4 MG TABLET PO PRN (07:45)
[2019-12-16] MEDS ORDERED: ACETAMINOPHEN 325 MG TABLET PO PRN (07:45)
[2019-12-16] MEDS ORDERED: OMEPRAZOLE 20 MG CAPSULE PO PRN (07:45)
[2019-12-16] MEDS ORDERED: CloNIDine HCL 0.1 MG TABLET PO PRN (07:45)
[2019-12-16] MEDS ORDERED: ALBUTEROL SULFATE HFA 90 MCG/PUFF 8 GM INHALER IH PRN (07:45)
[2019-12-16] MEDS ORDERED: BACITRACIN 28.4 GM OINTMENT TP PRN (07:45)
[2019-12-16] MEDS ORDERED: DOCUSATE SODIUM 100 MG CAPSULE PO PRN (07:45)
[2019-12-16] MEDS ORDERED: BENZOCAINE/MENTHOL LOZENGE MM PRN (07:45)
[2019-12-16] MEDS ORDERED: LOPERAMIDE HCL 2 MG CAPSULE PO PRN (07:45)
[2019-12-16] MEDS ORDERED: MAGNESIUM HYDROXIDE SUSPENSION 30 ML UDCUP PO PRN (07:45)
[2019-12-16] MEDS ORDERED: IBUPROFEN 600 MG TABLET PO PRN (07:45)
[2019-12-16 07:46] LABS: CHOL/HDL RATIO 2.6 (4.2-7.3)
[2019-12-16 08:00] VITALS: BP 130/92
[2019-12-16 16:38] VITALS: BP 115/62
[2019-12-16] MEDS: HALOPERIDOL 10 MG TABLET PO SCH (21:00)
[2019-12-17] MEDS: DIVALPROEX SODIUM 500 MG DR TABLET PO SCH ×3 (09:00→16:01)
[2019-12-17 11:14] VITALS: BP 130/88
[2019-12-17] MEDS: HALOPERIDOL 10 MG TABLET PO SCH (20:16)
[2019-12-17 21:17] VITALS: BP 126/79
[2019-12-18] MEDS: DIVALPROEX SODIUM 500 MG DR TABLET PO SCH ×3 (09:00→16:10)
[2019-12-18 10:18] VITALS: BP 134/60
[2019-12-18 17:31] VITALS: BP 129/85
[2019-12-18] MEDS: HALOPERIDOL 10 MG TABLET PO SCH (20:10)
[2019-12-19] MEDS: DIVALPROEX SODIUM 500 MG DR TABLET PO SCH ×4 (09:00→15:58)
[2019-12-19 10:52] VITALS: BP 108/61
[2019-12-19 16:43] VITALS: BP 107/73
[2019-12-19] MEDS: HALOPERIDOL 10 MG TABLET PO SCH (20:08)
[2019-12-19] MEDS: LORazepam 2 MG TABLET PO PRN (22:56)
[2019-12-20] MEDS: DIVALPROEX SODIUM 500 MG DR TABLET PO SCH ×3 (09:29→15:51)
[2019-12-20 10:58] VITALS: BP 118/67
[2019-12-20] MEDS: LORazepam 2 MG TABLET PO PRN (15:51)
[2019-12-20 16:55] VITALS: BP 126/64
[2019-12-20] MEDS: HALOPERIDOL 10 MG TABLET PO SCH (21:00)
[2019-12-21 09:42] VITALS: BP 132/64
[2019-12-21] MEDS: DIVALPROEX SODIUM 500 MG DR TABLET PO SCH ×3 (11:38→16:04)
[2019-12-21] MEDS: LORazepam 2 MG TABLET PO PRN ×2 (16:04→20:26)
[2019-12-21 16:50] VITALS: BP 115/83
[2019-12-21] MEDS: HALOPERIDOL 10 MG TABLET PO SCH (20:24)
[2019-12-21] MEDS: ZOLPIDEM TARTRATE 10 MG TABLET PO PRN (21:47)
[2019-12-22] MEDS: DIVALPROEX SODIUM 500 MG DR TABLET PO SCH ×3 (08:39→16:12)
[2019-12-22 12:16] VITALS: BP 150/72
[2019-12-22 17:00] VITALS: BP 124/96
[2019-12-22] MEDS: HALOPERIDOL 10 MG TABLET PO SCH (20:29)
[2019-12-22] MEDS: ZOLPIDEM TARTRATE 10 MG TABLET PO PRN (20:30)
[2019-12-23] MEDS: DIVALPROEX SODIUM 500 MG DR TABLET PO SCH ×3 (10:18→17:12)
[2019-12-23 12:03] VITALS: BP 128/71
[2019-12-23 16:21] VITALS: BP 111/65
[2019-12-23] MEDS: OLANZapine 7.5 MG TABLET PO SCH (20:34)
[2019-12-23 23:45] VITALS: BP 156/67
[2019-12-23] MEDS: LORazepam 2 MG TABLET PO PRN (23:48)
[2019-12-24] MEDS: DIVALPROEX SODIUM 500 MG DR TABLET PO SCH ×3 (08:21→16:43)
[2019-12-24 08:41] VITALS: BP 146/84
[2019-12-24 19:13] VITALS: BP 126/87
[2019-12-24] MEDS: OLANZapine 7.5 MG TABLET PO SCH (20:07)
[2019-12-25] MEDS: DIVALPROEX SODIUM 500 MG DR TABLET PO SCH ×3 (08:16→16:13)
[2019-12-25 09:14] VITALS: BP 139/76
[2019-12-25 16:49] VITALS: BP 144/72
[2019-12-25] MEDS: OLANZapine 7.5 MG TABLET PO SCH (20:03)
[2019-12-26 08:37] VITALS: BP 146/97
[2019-12-26] MEDS: DIVALPROEX SODIUM 500 MG DR TABLET PO SCH ×2 (09:09→12:58)
[2019-12-26] MEDS ORDERED: DIVA-78 PO (14:30)
[2019-12-26] MEDS ORDERED: OLAN7.5T2 PO (14:31)
== END 2019-12-26 16:30 | disposition home or self-care (01) | DRG 885 ==
LOC: EMS 12:12 → AHU 21:22 → 3EC 12-16 00:30 → 3EI 12-23 18:57
PROVIDERS: ADMIT Psychiatry & Neurology Psychiatry; ATTEND Psychiatry & Neurology Psychiatry
DX: F20.0 Paranoid schizophrenia (principal); E66.9 Obesity, unspecified; F15.10 Other stimulant abuse, uncomplicated; I10 Essential (primary) hypertension; Z56.0 Unemployment, unspecified; Z79.899 Other long term (current) drug therapy; Z87.891 Personal history of nicotine dependence; Z68.30 Body mass index [BMI] 30.0-30.9, adult
CPT/HCPCS: G0480

== ENCOUNTER 2019-12-29 03:51 | Emergency (ER) | payer MEDICAID ==
[~2019-12-29] VITALS: Ht 188 cm; Wt 127.3 kg
[~2019-12-29 03:51] MED LIST changes: -DIVA250T4 PO; -HALO10 PO; -HALO100V4 IM; -NALT50TA PO; -NALT50TA6 PO; +OLAN7.5T2 PO; -TRIH2TAB3 PO
[2019-12-29] MEDS ORDERED: ACETAMINOPHEN 325 MG TABLET PO ONE (04:30)
[2019-12-29 05:14] LABS: BASOPHILS % (AUTO) 0.4 % (0.0-2.0); EOSINOPHILS % (AUTO) 0.1 % (1.0-6.0); HEMATOCRIT 42.5 % (41-53); HEMOGLOBIN 14.6 g/dL (13.5-17.5); LYMPHOCYTES # (AUTO) 1.8 K/uL (1.0-4.8); LYMPHOCYTES % (AUTO) 15.8 % (22.0-44.0); MEAN CORPUSCULAR HEMOGLOBIN 30.6 pg (26.0-34.0); MEAN CORPUSCULAR HGB CONC 34.4 G/dL (31.0-37.0); MEAN CORPUSCULAR VOLUME 89 fL (80-100); MONOCYTES # (AUTO) 0.9 K/uL (0.1-1.0); NEUTROPHILS # (AUTO) 8.8 K/uL (1.8-7.7); NEUTROPHILS % (AUTO) 75.7 % (40.0-70.0); PLATELET COUNT (AUTO) 288 K/uL (150-450); RED BLOOD CELL COUNT(AUTO) 4.77 MIL/uL (4.50-5.90); RED CELL DISTRIBUTION WIDTH 13.6 % (11.5-14.5)
[2019-12-29 05:34] LABS: ANION GAP 10 mmol/L (8-16); CALCIUM, TOTAL 9.2 mg/dL (8.8-10.5); CARBON DIOXIDE 27 mmol/L (22-29); CHLORIDE 104 mmol/L (98-107); CREATININE 1.21 mg/dL (0.60-1.30); GLOMERULAR FILTR. RATE CALC > 60 mL/min (>60); GLUCOSE,RANDOM 129 mg/dL (70-110); POTASSIUM 3.9 mmol/L (3.5-5.1); SODIUM SERUM 141 mmol/L (136-145); UREA NITROGEN, BLOOD 17 mg/dL (7-18)
[2019-12-29 05:38] LABS: ALANINE AMINOTRANSFERASE 27 U/L (12-78); ALBUMIN 4.5 g/dL (3.4-5.0); ALKALINE PHOSPHATASE 66 U/L (46-116); ASPARTATE AMINOTRANSFERASE 28 U/L (15-37); TOTAL PROTEIN, SERUM 8.4 g/dL (6.4-8.2)
[2019-12-29 05:41] VITALS: BP 134/82
== END 2019-12-29 05:53 | disposition home or self-care (01) ==
LOC: EMS 03:51
DX: F15.10 Other stimulant abuse, uncomplicated (principal); R45.851 Suicidal ideations; F31.9 Bipolar disorder, unspecified; F20.9 Schizophrenia, unspecified; I10 Essential (primary) hypertension; F17.210 Nicotine dependence, cigarettes, uncomplicated; F12.90 Cannabis use, unspecified, uncomplicated; F19.90 Other psychoactive substance use, unspecified, uncomplicated; Z59.0 Homelessness
CPT/HCPCS: 36415; 71045; 80053; 85025; 99285; G0480

== ENCOUNTER 2020-01-01 15:51 | Emergency (ER) | payer MEDICAID ==
[~2020-01-01] VITALS: Ht 188 cm; Wt 127.3 kg
[~2020-01-01 15:51] MED LIST changes: +DIVA-112 PO; -DIVA-78 PO
[2020-01-01] MEDS ORDERED: MIDAZOLAM HCL 5 MG/ML VIAL IM ONE (18:00)
[2020-01-01 18:43] LABS: BASOPHILS % (AUTO) 0.6 % (0.0-2.0); EOSINOPHILS % (AUTO) 0.4 % (1.0-6.0); HEMATOCRIT 38.5 % (41-53); HEMOGLOBIN 13.1 g/dL (13.5-17.5); LYMPHOCYTES # (AUTO) 2.1 K/uL (1.0-4.8); LYMPHOCYTES % (AUTO) 23.7 % (22.0-44.0); MEAN CORPUSCULAR HEMOGLOBIN 30.2 pg (26.0-34.0); MEAN CORPUSCULAR HGB CONC 33.9 G/dL (31.0-37.0); MEAN CORPUSCULAR VOLUME 89 fL (80-100); MONOCYTES # (AUTO) 0.9 K/uL (0.1-1.0); MONOCYTES % (AUTO) 10.1 % (2.0-9.0); NEUTROPHILS # (AUTO) 5.8 K/uL (1.8-7.7); NEUTROPHILS % (AUTO) 65.2 % (40.0-70.0); PLATELET COUNT (AUTO) 253 K/uL (150-450); RED BLOOD CELL COUNT(AUTO) 4.32 MIL/uL (4.50-5.90); RED CELL DISTRIBUTION WIDTH 13.8 % (11.5-14.5)
[2020-01-01 18:58] LABS: ANION GAP 15 mmol/L (8-16); CALCIUM, TOTAL 8.8 mg/dL (8.8-10.5); CARBON DIOXIDE 23 mmol/L (22-29); CHLORIDE 107 mmol/L (98-107); CREATININE 0.87 mg/dL (0.60-1.30); GLOMERULAR FILTR. RATE CALC > 60 mL/min (>60); GLUCOSE,RANDOM 90 mg/dL (70-110); POTASSIUM 3.5 mmol/L (3.5-5.1); SODIUM SERUM 145 mmol/L (136-145); UREA NITROGEN, BLOOD 12 mg/dL (7-18)
[2020-01-01 19:04] LABS: ALANINE AMINOTRANSFERASE 32 U/L (12-78); ALBUMIN 4.1 g/dL (3.4-5.0); ALKALINE PHOSPHATASE 57 U/L (46-116); ASPARTATE AMINOTRANSFERASE 20 U/L (15-37); BILIRUBIN,TOTAL 0.8 mg/dL (0.1-1.0); TOTAL PROTEIN, SERUM 7.4 g/dL (6.4-8.2)
[2020-01-01 19:15] LABS: VALPROIC ACID < 3 mcg/mL (50-100)
[2020-01-01 20:45] VITALS: BP 145/97
== END 2020-01-01 20:49 | disposition home or self-care (01) ==
LOC: EMS 15:54
DX: F15.10 Other stimulant abuse, uncomplicated (principal); R45.851 Suicidal ideations; F31.9 Bipolar disorder, unspecified; F20.9 Schizophrenia, unspecified; I10 Essential (primary) hypertension; F17.210 Nicotine dependence, cigarettes, uncomplicated; F12.90 Cannabis use, unspecified, uncomplicated
CPT/HCPCS: 36415; 80053; 80164; 85025; 96372; 99285; G0480; J2250

== ENCOUNTER 2020-01-11 19:54 | Emergency (ER) | payer MEDICAID ==
[~2020-01-11] VITALS: Ht 188 cm; Wt 130.4 kg
[~2020-01-11 19:54] MED LIST changes: -DIVA-112 PO; +DIVA-78 PO
[2020-01-11 21:09] VITALS: BP 129/79
== END 2020-01-11 21:10 | disposition home or self-care (01) ==
LOC: EMS 19:55
DX: F20.9 Schizophrenia, unspecified (principal); F31.9 Bipolar disorder, unspecified; I10 Essential (primary) hypertension; F17.210 Nicotine dependence, cigarettes, uncomplicated; F12.90 Cannabis use, unspecified, uncomplicated; F19.90 Other psychoactive substance use, unspecified, uncomplicated